=== PATIENT | male | born 1985 ===

== ENCOUNTER 2020-10-27 17:57 | Emergency (ER) | payer OTHER ==
[2020-10-27 18:33] LABS: HEMOGLOBIN 16.3 gm/dl (14.0-17.5); RED BLOOD COUNT 5.79 M/UL (4.20-5.50); WHITE BLOOD COUNT 12.1 K/UL (4.5-11.0)
[2020-10-27 19:02] LABS: BUN/CREATININE RATIO 13 (0-10)
[2020-10-27] MEDS ORDERED: TORADOL 10 MG T10 MG PO (19:54)
[2020-10-27] MEDS ORDERED: ZOFRAN4 MG PO (19:54)
== END 2020-10-27 20:06 | disposition home or self-care (01) ==
LOC: ER1 17:57
PROVIDERS: Preventive Medicine Occupational Medicine
DX: N23 Unspecified renal colic (principal)
CPT/HCPCS: 80053; 81001; 83605; 85025; 85652; 86140; 87086; 96374; 96375; 99284; J1170; J1885; J2405; Q9967

== ENCOUNTER → 2021-03-08 | Outpatient (CLI) | payer OTHER ==
[~2021-03-08] MED LIST: TORADOL 10 MG T10 MG PO; ZOFRAN4 MG PO
== END ==
LOC: KOH-I 15:18
DX: M54.2 Cervicalgia (principal)
CPT/HCPCS: 72050

== ENCOUNTER 2021-04-15 19:32 | Emergency (ER) | payer OTHER ==
[~2021-04-15] VITALS: Ht 175.3 cm; Wt 147.4 kg
[2021-04-15] MEDS ORDERED: IBU600 MG PO (21:24)
== END 2021-04-15 22:27 | disposition home or self-care (01) ==
LOC: ER1 19:32
DX: U07.1 COVID-19 (principal); Z23 Encounter for immunization
CPT/HCPCS: 99283; M0243